=== PATIENT | female | born 1965 | race Caucasian/White ===

== ENCOUNTER → 2017-03-17 | Outpatient (CLI) | payer BC ==
[~2017-03-17] MED LIST: ACET-1757 PO; CITA20TA9 PO; GABA-827 PO; GABA600T2 PO; HYDR-3307 PO; IBUP200T48 PO; LORA-445 PO; METH750T87 PO; NAPR550T30 PO; OXYC-302 PO; PANT40TA3 PO; RALO60TA PO; TOPI100T24 PO; TRAZ50TA18 PO; ZOLP-413 PO
== END | disposition home or self-care (01) ==
LOC: CFH 14:33
PROVIDERS: ATTEND Radiology Radiation Oncology
DX: N63 Unspecified lump in breast (principal); Z92.3 Personal history of irradiation; Z90.12 Acquired absence of left breast and nipple; Z85.3 Personal history of malignant neoplasm of breast
CPT/HCPCS: 76641; G0204

== ENCOUNTER → 2017-03-28 | Outpatient (CLI) | payer BC ==
[~2017-03-28] MED LIST changes: +LIDOCAINE 1%-EPI 1:100K, 20ML ONE; +SODIUM BICARBONATE 4.2%, 5ML ONE
== END | disposition home or self-care (01) ==
LOC: CFH 09:50
PROVIDERS: ATTEND Radiology Radiation Oncology
DX: N63 Unspecified lump in breast (principal); Z85.3 Personal history of malignant neoplasm of breast
CPT/HCPCS: 19083; 88305; J3490

== ENCOUNTER → 2017-06-13 | Outpatient (CLI) | payer BC ==
[~2017-06-13] MED LIST changes: -LIDOCAINE 1%-EPI 1:100K, 20ML ONE; +NAPR-850 PO; -NAPR550T30 PO; -SODIUM BICARBONATE 4.2%, 5ML ONE
== END | disposition home or self-care (01) ==
LOC: ROC 15:12
PROVIDERS: ATTEND Radiology Radiation Oncology
DX: Z08 Encounter for follow-up examination after completed treatment for malignant neoplasm (principal); C50.412 Malignant neoplasm of upper-outer quadrant of left female breast
CPT/HCPCS: 99212; G0463

== ENCOUNTER → 2018-06-24 | Outpatient (CLI) | payer OTHER ==
[~2018-06-24] MED LIST changes: -IBUP200T48 PO; +IBUP200T49 PO; +TRAZ-136 PO; -TRAZ50TA18 PO
== END | disposition home or self-care (01) ==
LOC: CFH 13:21
PROVIDERS: ATTEND Radiology Radiation Oncology
DX: C50.412 Malignant neoplasm of upper-outer quadrant of left female breast (principal)
CPT/HCPCS: 77066

== ENCOUNTER 2018-09-24 15:00 | Emergency (ER) | payer OTHER ==
[~2018-09-24] VITALS: Ht 160 cm; Wt 67.5 kg
[~2018-09-24 15:00] MED LIST changes: -GABA600T2 PO; +GABA600T7 PO; -TRAZ-136 PO; +TRAZ50TA66 PO
[2018-09-24] MEDS ORDERED: ONDANSETRON ODT 4 MG ONE (16:14)
[2018-09-24] MEDS ORDERED: HYDROcodone/APAP 5/325 TABLET ONE (16:15)
--- NOTE | 2018-09-24 16:15 | NUR ---
late entry for 16:15. pt c/o right back and lateral pain since yesterday with mohan/dizziness. pt denies d/v/n at this time. pt c/o dysuria x 1 week as well. pt aox4. resps even and unlabored. pt's at bedside. all monitors in place. call light within reach. awaiting edmd asssessment at this time.
[2018-09-24 16:16] LABS: ALANINE AMINOTRANSFERASE 29 U/L (12-78); ALBUMIN 3.8 g/dL (3.4-5.0); ANION GAP 5 mmol/L (5-15); CALCIUM 9.3 mg/dL (8.5-10.1); CHLORIDE 109 mmol/L (98-107); CREATININE 0.75 mg/dL (0.55-1.02)
--- NOTE | 2018-09-24 16:17 | NUR ---
PT MEDICATED PER EMAR. PT TOLERATED WELL. PT AOX4. RESPS EVEN AND UNLABORED.
[2018-09-24 16:18] LABS: ALKALINE PHOSPHATASE 101 U/L (45-117); BILIRUBIN,TOTAL 0.2 mg/dL (0.2-1.0); TOTAL PROTEIN 7.3 g/dL (6.4-8.2)
[2018-09-24 16:21] LABS: BASOPHILS # (AUTO) 0.03 x10^3/uL (0-0.1); BASOPHILS % (AUTO) 1 % (0-1); EOSINOPHILS % (AUTO) 7 % (1-7); LYMPHOCYTES # (AUTO) 1.81 x10^3/uL (1-3.4); LYMPHOCYTES % (AUTO) 39 % (22-44); MD NO; MEAN CORPUSCULAR HEMOGLOBIN 33.7 pg (27.0-34.8); MEAN PLATELET VOLUME 8.2 fL (7.4-10.4); MONOCYTES # (AUTO) 0.42 x10^3/uL (0.2-0.8); MONOCYTES % (AUTO) 9 % (2-9); NEUTROPHILS % (AUTO) 45 % (42-75); PLATELET COUNT 260 x10^3/uL (130-400); RED BLOOD COUNT 3.65 x10^6/uL (3.82-5.3)
[2018-09-24] MEDS ORDERED: AMOVIG (16:25)
[2018-09-24 16:26] LABS: MICROSCOPIC NOT IND
[2018-09-24] MEDS ORDERED: HYDROcodone/APAP 5/325 TABLET PO ONE (16:30)
[2018-09-24] MEDS ORDERED: ONDANSETRON ODT 4 MG PO ONE (16:30)
[2018-09-24 16:42] LABS: CULTURE INDICATED? NO
--- NOTE | 2018-09-24 17:12 | NUR ---
preceptor note: pt tolerating PO fluids with no n/v. pt reports pain improved s/p meds. all results back, chart up for recheck. awaiting MD and dispo.
--- NOTE | 2018-09-24 17:44 | NUR ---
edmd biagi at bedside to update pt with results and poc.
[2018-09-24] MEDS ORDERED: MORPHINE SULFATE 4 MG/ML, 1ML ONE ×2 (17:49→19:23)
[2018-09-24] MEDS: MORPHINE SULFATE 4 MG/ML, 1ML IVPush PRN ×2 (17:58→19:27)
--- NOTE | 2018-09-24 18:02 | NUR ---
piv placed, pt medicated per emar. tolerated well. pt reports level 8/10 pain to right lower back prior to morphine, now 0/10. pt on all monitors, pt a&o, resps even and unlabored. nsr on desk monitor. pt awaiting ct and dispo.
--- NOTE | 2018-09-24 18:49 | NUR ---
PT BACK TO ROOM FROM CT.
--- NOTE | 2018-09-24 18:54 | NUR ---
pt amb to br with steady gait and back to room.
[2018-09-24] MEDS ORDERED: OMNIPAQUE 350 MG/ML, 100ML BOTTLE ONE (19:23)
--- NOTE | 2018-09-24 19:31 | NUR ---
PT PAIN LEVEL 6-7/10 AT THIS TIME. PT GIVEN 2ND DOSE OF MORPHINE SULFATE AT THIS TIME. PT TOLERATED WELL. PT AOX4. RESPS EVEN AND UNLABORED.
--- NOTE | 2018-09-24 19:51 | NUR ---
PT PAIN LEVEL REDUCES 4-5/10 AT THIS TIME. PT REFUSED ANY PAIN MED AT THIS TIME.
[2018-09-24 19:52] VITALS: BP 108/65
--- NOTE | 2018-09-24 20:03 | NUR ---
PT GIVEN DC INSTRUCTIONS AND SCRIPTS. PT EDUCATED REGARDING DC MEDICATIONS WHICH ARE CEFDINIR AND MIRALAX. PT AOX4. RESPS EVEN AND UNLABORED. PT AMB TO DC WITH STEADY GAIT. NO ACUTE DISTRESS AT DC. PT'S PAIN LEVEL REDUCED AT DC.
== END 2018-09-24 20:05 | disposition home or self-care (01) ==
LOC: ED 18:25
DX: N10 Acute pyelonephritis (principal); K59.00 Constipation, unspecified; M54.9 Dorsalgia, unspecified; Z90.710 Acquired absence of both cervix and uterus; Z85.3 Personal history of malignant neoplasm of breast
CPT/HCPCS: 36415; 74177; 80053; 81003; 83690; 85025; 96374; 96376; 99284; Q0162; Q9967

== ENCOUNTER 2018-09-29 05:55 | Emergency (ER) | payer OTHER ==
[~2018-09-29] VITALS: Ht 165.1 cm; Wt 69.0 kg
[~2018-09-29 05:55] MED LIST changes: +AMOVIG
[2018-09-29] MEDS ORDERED: ONDANSETRON 2MG/ML, 2ML ONE (06:27)
[2018-09-29] MEDS ORDERED: HYDROmorphone 1 MG/ML, 1ML ONE ×2 (06:28→09:15)
[2018-09-29] MEDS ORDERED: ONDANSETRON 2MG/ML, 2ML IVPush ONE (06:30)
[2018-09-29] MEDS ORDERED: SODIUM CHLORIDE FLUSH 10ML SYR IVF ONE (06:30)
[2018-09-29] MEDS: HYDROmorphone 2 MG/ML, 1ML IVPush PRN ×3 (06:35→09:24)
[2018-09-29 06:38] LABS: BASOPHILS # (AUTO) 0.02 x10^3/uL (0-0.1); BASOPHILS % (AUTO) 1 % (0-1); EOSINOPHILS # (AUTO) 0.43 x10^3/uL (0-0.4); EOSINOPHILS % (AUTO) 12 % (1-7); LYMPHOCYTES # (AUTO) 1.18 x10^3/uL (1-3.4); LYMPHOCYTES % (AUTO) 32 % (22-44); MD NO; MEAN CORPUSCULAR HEMOGLOBIN 33.5 pg (27.0-34.8); MEAN CORPUSCULAR HGB CONC 33.8 g/dL (32.4-35.8); MEAN CORPUSCULAR VOLUME 98.9 fL (80-100); MEAN PLATELET VOLUME 7.8 fL (7.4-10.4); MONOCYTES # (AUTO) 0.32 x10^3/uL (0.2-0.8); MONOCYTES % (AUTO) 9 % (2-9); NEUTROPHILS # (AUTO) 1.78 x10^3/uL (1.8-6.8); NEUTROPHILS % (AUTO) 48 % (42-75); PLATELET COUNT 253 x10^3/uL (130-400); RED BLOOD COUNT 3.77 x10^6/uL (3.82-5.3); RED CELL DISTRIBUTION WIDTH 12.9 % (9.6-15.2)
[2018-09-29 06:38] LABS: MICROSCOPIC NOT IND
--- NOTE | 2018-09-29 06:38 | NUR ---
SUMMARY NOTE: PT. TO ED WITH C/O RIGHT FLANK PAIN, DIZZINESS, AND FREQUENCY WITH URINATION SINCE 09/24/18; SEEN HERE FOR SAME THAT DAY. HAS BEEN TAKING MEDS ORDERED BUT GETTING WORSE. URINE HAS BEEN SENT TO LAB. IV HAS BEEN ESTABLISHED; LABS DRAWN AND SENT TO LAB. PT. MEDICATED PER OCT FOR 8/10 RIGHT FLANK PAIN; PAIN DOWN TO 5/10 AT TIME OF NOTE. TECH AT BS FOR EKG NOW. IMMEDIATELY AFTER FIELD MARKETING SPECIALIST O2 DROPPED TO 80'S; 2L O2 PLACED VIA NC WITH IMMEDIATE INCREASE TO 99%. IS AT BS FOR SUPPORT. CALL LIGHT IN REACH. CONTINUOUS PULSE OX, B/P, AND HEART MONITORS IN PLACE.
[2018-09-29 06:43] LABS: ALANINE AMINOTRANSFERASE 74 U/L (12-78); ALBUMIN 3.8 g/dL (3.4-5.0); ANION GAP 5 mmol/L (5-15); CALCIUM 9.3 mg/dL (8.5-10.1); CHLORIDE 108 mmol/L (98-107); CREATININE 0.74 mg/dL (0.55-1.02)
[2018-09-29 06:44] LABS: CULTURE INDICATED? NO
[2018-09-29 06:46] LABS: ALKALINE PHOSPHATASE 122 U/L (45-117); BILIRUBIN,TOTAL 0.5 mg/dL (0.2-1.0); TOTAL PROTEIN 7.4 g/dL (6.4-8.2)
--- NOTE | 2018-09-29 06:50 | NUR ---
DISCUSSED B/P WITH DR. QUIROS; NEW ORDERS RECEIVED. IVF INFUSIGN PER ORDER.
[2018-09-29] MEDS ORDERED: SODIUM CHLORIDE 0.9% 1,000ML IVBOLUS ONE (07:00)
--- NOTE | 2018-09-29 07:15 | NUR ---
Recieved bedside report from MICKIE Camargo. All questions answered.
--- NOTE | 2018-09-29 07:19 | NUR ---
Pt transported on gurney to imaging.
--- NOTE | 2018-09-29 07:55 | NUR ---
Pt away at imaging on [facility] at this time.
--- NOTE | 2018-09-29 08:45 | NUR ---
Pt back to room from imaging. Pt connected to all monitors. PIV fluids finished infusing per EMAR. JACKSON. Pt states, "I am still having pain". All safety measures in place. Pt's spouse at bedside. Pt on 1.5 L of oxygen via nasal cannula and is at 100%.
[2018-09-29] MEDS ORDERED: MALOXICAM PO (08:52)
[2018-09-29] MEDS ORDERED: TIZA4CAP PO (08:52)
--- NOTE | 2018-09-29 09:24 | NUR ---
Provided 0.5 mg of Hydromorphone hydrochloride PIV dose 2 of 2, per EDMD verbal order. Verbal order read back and confirmed.
[2018-09-29 09:43] VITALS: BP 107/50
--- NOTE | 2018-09-29 09:46 | NUR ---
Patient/Caregiver given discharge instructions and they have confirmed that they understand the instructions. Patient ambulatory with steady gait.
== END 2018-09-29 06:47 | disposition home or self-care (01) ==
LOC: ED 06:36
DX: K80.20 Calculus of gallbladder without cholecystitis without obstruction (principal); R42 Dizziness and giddiness; Z90.710 Acquired absence of both cervix and uterus; Z85.3 Personal history of malignant neoplasm of breast
CPT/HCPCS: 36415; 74022; 76700; 80053; 81003; 83690; 85025; 93005; 96361; 96374; 96375; 96376; 99284; J1170; J2405; J7030

== ENCOUNTER 2018-10-12 13:27 | Observation (INO) | payer OTHER ==
[~2018-10-12] VITALS: Ht 165.1 cm; Wt 55.7 kg
[~2018-10-12 13:27] MED LIST changes: +MALOXICAM PO; +SUCCINYLCHOLINE 20 MG/ML, 10ML ONE; +TIZA4CAP PO
[2018-10-12 14:15] LABS: BASOPHILS # (AUTO) 0.02 x10^3/uL (0-0.1); BASOPHILS % (AUTO) 0 % (0-1); EOSINOPHILS # (AUTO) 0.43 x10^3/uL (0-0.4); EOSINOPHILS % (AUTO) 8 % (1-7); LYMPHOCYTES # (AUTO) 1.98 x10^3/uL (1-3.4); LYMPHOCYTES % (AUTO) 39 % (22-44); MD NO; MEAN CORPUSCULAR HEMOGLOBIN 33.5 pg (27.0-34.8); MEAN CORPUSCULAR HGB CONC 34.2 g/dL (32.4-35.8); MEAN CORPUSCULAR VOLUME 97.9 fL (80-100); MEAN PLATELET VOLUME 8.4 fL (7.4-10.4); MONOCYTES # (AUTO) 0.39 x10^3/uL (0.2-0.8); MONOCYTES % (AUTO) 8 % (2-9); NEUTROPHILS # (AUTO) 2.31 x10^3/uL (1.8-6.8); NEUTROPHILS % (AUTO) 45 % (42-75); PLATELET COUNT 276 x10^3/uL (130-400); RED BLOOD COUNT 3.87 x10^6/uL (3.82-5.3); RED CELL DISTRIBUTION WIDTH 12.9 % (9.6-15.2)
--- NOTE | 2018-10-12 14:23 | NUR ---
PT AMBUALTORY TO & FROM BR W/OUT INCIDENT; VOIDED SPECIMEN PROVIDED.
[2018-10-12 14:24] LABS: ALBUMIN 4.4 g/dL (3.4-5.0); ANION GAP 6 mmol/L (5-15); CALCIUM 9.7 mg/dL (8.5-10.1); CHLORIDE 108 mmol/L (98-107)
--- NOTE | 2018-10-12 14:27 | NUR ---
PT A&OX4, RESP EVEN & UNLABORED, SPEECH CLEAR, SKIN WNL. C/O RUQ PAIN - STARTED 09/24/18 - STATES "I HAVE GALLSTONES". SENT TO ED PER PCP. NO PAIN MEDS TAKEN RECENTLY. LAST ORAL INTAKE: COFFEE - SCOTTY LUCILLECHIATO - 0900 TODAY. LAST BM: TODAY.
[2018-10-12 14:28] LABS: ALANINE AMINOTRANSFERASE 36 U/L (12-78); ALKALINE PHOSPHATASE 122 U/L (45-117); BILIRUBIN,TOTAL 0.3 mg/dL (0.2-1.0); CREATININE 0.68 mg/dL (0.55-1.02); TOTAL PROTEIN 7.7 g/dL (6.4-8.2)
[2018-10-12] MEDS ORDERED: ONDANSETRON 2MG/ML, 2ML IVPush ONE (14:30)
[2018-10-12] MEDS ORDERED: MORPHINE SULFATE 4 MG/ML, 1ML IVPush PRN (14:30)
[2018-10-12] MEDS ORDERED: SODIUM CHLORIDE FLUSH 10ML SYR IVF ONE (14:30)
--- NOTE | 2018-10-12 14:36 | NUR ---
U/S AT BS FOR EXAM
[2018-10-12] MEDS ORDERED: ONDANSETRON 2MG/ML, 2ML ONE ×2 (15:01→15:32)
[2018-10-12] MEDS ORDERED: MORPHINE SULFATE 4 MG/ML, 1ML ONE (15:02)
[2018-10-12] MEDS ORDERED: FENTANYL PF 100 MCG/2ML ONE ×3 (15:29→17:23)
[2018-10-12] MEDS ORDERED: MIDAZOLAM 1 MG/ML, 2ML ONE (15:29)
[2018-10-12] MEDS ORDERED: NEOSTIGMINE 1 MG/ML, 10ML ONE (15:32)
[2018-10-12] MEDS ORDERED: GLYCOPYRROLATE 0.2MG/1ML, 5ML ONE (15:32)
[2018-10-12] MEDS ORDERED: CEFOTETAN PMX 2GM/50ML 50 ML ONE (15:32)
[2018-10-12] MEDS ORDERED: ROCURONIUM 10MG/ML,5ML ONE (15:32)
[2018-10-12] MEDS ORDERED: PROPOFOL 10 MG/ML, 20ML ONE (15:32)
--- NOTE | 2018-10-12 15:44 | NUR ---
ZOFRAN AND MORPHINE GIVEN PER EMAR. SIDE RAILS UP X2, CALL LIGHT W/IN REACH. PT AWARE OF PENDING ADMISSION.
--- NOTE | 2018-10-12 15:57 | NUR ---
PT REPORT TO MARGO OR LYSSA. PT CURRENTLY SCHEDULED FOR 1645 SURGERY.
--- NOTE | 2018-10-12 16:10 | NUR ---
PT OT OR PER LUCIANA, ACCOMPANIED BY SPOUSE; PERSONAL BELONGINGS GIVEN TO SPOUSE.
[2018-10-12] MEDS ORDERED: BUPIVACAINE/PF-EPI 0.5% 1:200K ONE (16:19)
[2018-10-12] MEDS ORDERED: SUGAMMADEX 200 MG/2 ML IVPush ONE (16:21)
[2018-10-12] MEDS ORDERED: SODIUM CHLORIDE FLUSH 10ML SYR IVF PRN (16:30)
[2018-10-12] MEDS ORDERED: HYDROmorphone 2 MG/ML, 1ML IVPush PRN ×2 (17:00→17:30)
[2018-10-12] MEDS ORDERED: MEPERIDINE/PF 25MG/0.5ML IVPush PRN (17:00)
[2018-10-12] MEDS ORDERED: METOCLOPRAMIDE 5 MG/ML, 2ML IV PRN (17:00)
[2018-10-12] MEDS ORDERED: OXYcodone 5 MG/5 ML ORAL.SOL UDC PO PRN ×2 (17:00→17:30)
[2018-10-12] MEDS ORDERED: LABETALOL 5MG/ML, 20ML IV PRN (17:00)
[2018-10-12] MEDS ORDERED: LORazepam 2 MG/ML, 1ML IVPush PRN (17:00)
[2018-10-12] MEDS ORDERED: hydrALAzine 20 MG/ML, 1ML IV PRN (17:00)
[2018-10-12] MEDS: FENTANYL PF 100 MCG/2ML IV PRN ×2 (17:19→17:31)
[2018-10-12] MEDS ORDERED: OXYcodone 5 MG/5 ML ORAL.SOL UDC ONE (17:23)
[2018-10-12] MEDS ORDERED: MEPERIDINE/PF 25MG/ML,1ML ONE (17:29)
[2018-10-12] MEDS ORDERED: PROMETHAZINE 25 MG/ML, 1ML ONE (17:29)
[2018-10-12] MEDS ORDERED: PROMETHAZINE 25 MG/ML, 1ML IV PRN (18:00)
[2018-10-12 18:44] VITALS: BP 121/83
[2018-10-12 23:46] VITALS: BP 90/52
[2018-10-12] MEDS: OXYcodone 5 MG/5 ML ORAL.SOL UDC PO PRN (23:57)
[2018-10-13] VITALS: BP 99/52
[2018-10-13] MEDS: OXYcodone 5 MG/5 ML ORAL.SOL UDC PO PRN (04:13)
[2018-10-13 04:47] VITALS: BP 97/66
== END 2018-10-13 05:50 | disposition home or self-care (01) ==
LOC: ED 14:21 → UNDOADMOB 16:11 → INTOOBSV 16:11 → EDIP 16:11 → 4NOR 18:33 → EDIP 18:33 → 4NOR 22:36 → EDIP 22:36 → UNDODISOB 10-13 05:50
PROVIDERS: ADMIT Surgery; ATTEND Surgery
DX: K80.12 Calculus of gallbladder with acute and chronic cholecystitis without obstruction (principal); Z85.3 Personal history of malignant neoplasm of breast; Z90.710 Acquired absence of both cervix and uterus; Z98.1 Arthrodesis status
CPT/HCPCS: 36415; 47562; 76700; 80053; 83690; 85025; 88304; 93005; 96374; 96375; 99284; G0378; J0330; J1170; J2175; J2250; J2405; J2550; J2704; J2710; J3010; J3490; 99285

== ENCOUNTER 2018-10-15 13:40 | Inpatient (IN) | payer OTHER ==
[~2018-10-15] VITALS: Ht 165.1 cm; Wt 73.2 kg
[~2018-10-15 13:40] MED LIST changes: -SUCCINYLCHOLINE 20 MG/ML, 10ML ONE
[2018-10-15 15:05] LABS: BASOPHILS # (AUTO) 0.01 x10^3/uL (0-0.1); BASOPHILS % (AUTO) 1 % (0-1); EOSINOPHILS # (AUTO) 0.12 x10^3/uL (0-0.4); EOSINOPHILS % (AUTO) 5 % (1-7); LYMPHOCYTES # (AUTO) 0.52 x10^3/uL (1-3.4); LYMPHOCYTES % (AUTO) 22 % (22-44); MD NO; MEAN CORPUSCULAR HEMOGLOBIN 33.1 pg (27.0-34.8); MEAN CORPUSCULAR HGB CONC 33.7 g/dL (32.4-35.8); MEAN CORPUSCULAR VOLUME 98.5 fL (80-100); MEAN PLATELET VOLUME 8.3 fL (7.4-10.4); MONOCYTES # (AUTO) 0.18 x10^3/uL (0.2-0.8); MONOCYTES % (AUTO) 8 % (2-9); NEUTROPHILS % (AUTO) 64 % (42-75); PLATELET COUNT 209 x10^3/uL (130-400); RED BLOOD COUNT 3.49 x10^6/uL (3.82-5.3); RED CELL DISTRIBUTION WIDTH 12.9 % (9.6-15.2)
[2018-10-15 15:10] LABS: ALBUMIN 3.9 g/dL (3.4-5.0); ANION GAP 5 mmol/L (5-15); CALCIUM 8.7 mg/dL (8.5-10.1); CHLORIDE 105 mmol/L (98-107); CREATININE 0.66 mg/dL (0.55-1.02)
[2018-10-15 15:19] LABS: ALANINE AMINOTRANSFERASE 1469 U/L (12-78); ALKALINE PHOSPHATASE 313 U/L (45-117); BILIRUBIN,TOTAL 0.9 mg/dL (0.2-1.0); TOTAL PROTEIN 7.4 g/dL (6.4-8.2)
--- NOTE | 2018-10-15 16:19 | NUR ---
ASSUMED CARE OF PT FROM [facility] AT THIS TIME. PT C/O FEVERS SINCE SURGERY 2 DAYS AGO FOR AMANDA. PT REPORT TEMP UP TO 103 AT HOME AND TOOK TYLENOL 4 HOURS AGO. CHART UP FOR .
[2018-10-15] MEDS ORDERED: OXYC-302 PO (16:41)
[2018-10-15] MEDS ORDERED: ACET-1600 PO (16:41)
[2018-10-15 17:04] LABS: MICROSCOPIC NOT IND
[2018-10-15 17:07] LABS: CULTURE INDICATED? NO
[2018-10-15] MEDS ORDERED: OXYcodone/APAP 5/325MG TABLET ONE (17:26)
[2018-10-15] MEDS ORDERED: OXYcodone/APAP 5/325MG TABLET PO ONE (17:30)
--- NOTE | 2018-10-15 17:30 | NUR ---
REPORT TO KHAI CORADO FOR LUNCH BREAK.
--- NOTE | 2018-10-15 18:38 | NUR ---
PT REPORTS PAIN IS BETTER AND VSS. WAITING FOR US RESULTS.
--- NOTE | 2018-10-15 19:02 | NUR ---
PAGING SURGEON PER DR. ORTIZ. PT AWARE.
[2018-10-15 20:26] VITALS: BP 130/78
[2018-10-15] MEDS ORDERED: ENALAPRILAT 1.25 MG/ML, 2ML IVPush PRN (21:30)
[2018-10-15] MEDS ORDERED: LIDODERM 5% PATCH TD PRN (21:30)
[2018-10-15] MEDS: TIZANIDINE 4MG TABLET PO SCH (21:42)
[2018-10-15] MEDS: GABAPENTIN 400 MG CAPSULE PO SCH (21:42)
[2018-10-15] MEDS: OXYcodone/APAP 5/325MG TABLET PO PRN ×2 (21:42→22:32)
[2018-10-15] MEDS: SODIUM CHLORIDE 0.9% 1,000 ML IV SCH (22:29)
[2018-10-15] MEDS: TEMAZEPAM 15 MG CAPSULE PO PRN (22:53)
[2018-10-15] MEDS: SIMETHICONE 125 MG CHEW TAB PO PRN (22:54)
[2018-10-16 00:01] VITALS: BP 133/61
[2018-10-16] MEDS: TIZANIDINE 4MG TABLET PO SCH ×4 (03:44→21:30)
[2018-10-16] MEDS: OXYcodone/APAP 5/325MG TABLET PO PRN ×5 (03:44→21:30)
[2018-10-16 04:55] LABS: MEAN CORPUSCULAR HEMOGLOBIN 34.1 pg (27.0-34.8); MEAN CORPUSCULAR HGB CONC 34.4 g/dL (32.4-35.8); MEAN CORPUSCULAR VOLUME 98.9 fL (80-100); MEAN PLATELET VOLUME 8.3 fL (7.4-10.4); PLATELET COUNT 180 x10^3/uL (130-400); RED BLOOD COUNT 3.13 x10^6/uL (3.82-5.3); RED CELL DISTRIBUTION WIDTH 13.1 % (9.6-15.2)
[2018-10-16 05:06] LABS: ALBUMIN 3.3 g/dL (3.4-5.0); ANION GAP 4 mmol/L (5-15); CALCIUM 8.4 mg/dL (8.5-10.1); CHLORIDE 110 mmol/L (98-107); CREATININE 0.62 mg/dL (0.55-1.02)
[2018-10-16 05:13] LABS: ALANINE AMINOTRANSFERASE 992 U/L (12-78); ALKALINE PHOSPHATASE 311 U/L (45-117); BILIRUBIN,TOTAL 0.7 mg/dL (0.2-1.0); TOTAL PROTEIN 6.4 g/dL (6.4-8.2)
[2018-10-16 05:32] LABS: BASOPHILS # (AUTO) 0.01 x10^3/uL (0-0.1); BASOPHILS % (AUTO) 1 % (0-1); EOSINOPHILS # (AUTO) 0.31 x10^3/uL (0-0.4); EOSINOPHILS % (AUTO) 13 % (1-7); LYMPHOCYTES % (AUTO) 42 % (22-44); MD SCAN; MONOCYTES # (AUTO) 0.24 x10^3/uL (0.2-0.8); MONOCYTES % (AUTO) 10 % (2-9); NEUTROPHILS # (AUTO) 0.79 x10^3/uL (1.8-6.8); NEUTROPHILS % (AUTO) 34 % (42-75)
[2018-10-16 08:45] VITALS: BP 102/69
[2018-10-16] MEDS: GABAPENTIN 400 MG CAPSULE PO SCH ×2 (09:13→21:30)
[2018-10-16] MEDS ORDERED: BISACODYL 10 MG SUPP PR PRN (11:30)
[2018-10-16] MEDS: SENNA/DOCUSATE TABLET PO SCH (13:32)
[2018-10-16] MEDS: SODIUM CHLORIDE 0.9% 1,000 ML IV SCH (13:35)
[2018-10-16 13:43] VITALS: BP 93/60
[2018-10-16 19:45] VITALS: BP 100/67
[2018-10-16] MEDS: TEMAZEPAM 15 MG CAPSULE PO PRN (21:30)
[2018-10-17 01:27] VITALS: BP 104/73
[2018-10-17] MEDS: PROMETHAZINE 25 MG/ML, 1ML IM PRN (02:44)
[2018-10-17] MEDS: OXYcodone/APAP 5/325MG TABLET PO PRN ×5 (02:44→20:30)
[2018-10-17] MEDS: TIZANIDINE 4MG TABLET PO SCH ×4 (04:15→21:34)
[2018-10-17 06:06] LABS: CHLORIDE 111 mmol/L (98-107)
[2018-10-17 06:13] LABS: ALANINE AMINOTRANSFERASE 571 U/L (12-78); ALBUMIN 3.3 g/dL (3.4-5.0); ALKALINE PHOSPHATASE 299 U/L (45-117); ANION GAP 4 mmol/L (5-15); BILIRUBIN,TOTAL 0.4 mg/dL (0.2-1.0); CALCIUM 8.3 mg/dL (8.5-10.1); CREATININE 0.61 mg/dL (0.55-1.02); TOTAL PROTEIN 6.3 g/dL (6.4-8.2)
[2018-10-17] MEDS: GABAPENTIN 400 MG CAPSULE PO SCH ×2 (09:26→20:30)
[2018-10-17] MEDS: SODIUM CHLORIDE 0.9% 1,000 ML IV SCH ×2 (09:27→21:35)
[2018-10-17] MEDS: SENNA/DOCUSATE TABLET PO SCH (09:27)
[2018-10-17 09:40] VITALS: BP 115/63
[2018-10-17 14:22] VITALS: BP 97/53
[2018-10-17 20:59] VITALS: BP 92/58
[2018-10-17] MEDS: TEMAZEPAM 15 MG CAPSULE PO PRN (21:34)
[2018-10-18 02:51] VITALS: BP 115/74
[2018-10-18] MEDS: TIZANIDINE 4MG TABLET PO SCH ×4 (02:55→21:00)
[2018-10-18] MEDS: OXYcodone/APAP 5/325MG TABLET PO PRN ×5 (02:55→22:44)
[2018-10-18 05:49] LABS: CHLORIDE 110 mmol/L (98-107)
[2018-10-18 05:56] LABS: ALANINE AMINOTRANSFERASE 412 U/L (12-78); ALBUMIN 3.2 g/dL (3.4-5.0); ALKALINE PHOSPHATASE 301 U/L (45-117); ANION GAP 3 mmol/L (5-15); BILIRUBIN,TOTAL 0.3 mg/dL (0.2-1.0); CALCIUM 8.4 mg/dL (8.5-10.1); CREATININE 0.58 mg/dL (0.55-1.02); TOTAL PROTEIN 6.3 g/dL (6.4-8.2)
[2018-10-18 07:15] VITALS: BP 118/70
[2018-10-18] MEDS ORDERED: FENTANYL PF 100 MCG/2ML ONE ×2 (07:47→09:33)
[2018-10-18] MEDS ORDERED: LABETALOL 5MG/ML, 20ML IV PRN (08:00)
[2018-10-18] MEDS ORDERED: METOPROLOL 1 MG/ML, 5ML IV PRN (08:00)
[2018-10-18] MEDS ORDERED: hydrALAzine 20 MG/ML, 1ML IV PRN (08:00)
[2018-10-18] MEDS ORDERED: PIPERACILLIN/TAZO/PMX 3.375GM 50 ML ONE (08:02)
[2018-10-18] MEDS ORDERED: ONDANSETRON 2MG/ML, 2ML ONE (08:10)
[2018-10-18] MEDS ORDERED: ROCURONIUM 10MG/ML,5ML ONE (08:10)
[2018-10-18] MEDS ORDERED: SUCCINYLCHOLINE 20 MG/ML, 10ML ONE (08:10)
[2018-10-18] MEDS ORDERED: DEXAMETHASONE 4 MG/ML, 1ML ONE (08:10)
[2018-10-18] MEDS ORDERED: PROPOFOL 10 MG/ML, 20ML ONE (08:10)
[2018-10-18] MEDS: SENNA/DOCUSATE TABLET PO SCH (09:00)
[2018-10-18] MEDS ORDERED: OXYcodone 5 MG/5 ML ORAL.SOL UDC ONE (09:33)
[2018-10-18] MEDS ORDERED: OMNIPAQUE 350 MG/ML, 50 ML BOTTLE ONE (09:37)
[2018-10-18] MEDS: FENTANYL PF 100 MCG/2ML IV PRN ×2 (09:40→10:03)
[2018-10-18] MEDS ORDERED: HYDROmorphone 2 MG/ML, 1ML ONE (09:43)
[2018-10-18] MEDS ORDERED: INDOMETHACIN 50 MG SUPP.RECT ONE (09:44)
[2018-10-18] MEDS: HYDROmorphone 2 MG/ML, 1ML IVPush PRN ×4 (09:46→13:34)
[2018-10-18] MEDS ORDERED: OXYcodone 5 MG/5 ML ORAL.SOL UDC PO PRN (10:00)
[2018-10-18] MEDS ORDERED: INDOMETHACIN 50 MG SUPP.RECT PR ONE ×2 (10:00→11:30)
[2018-10-18] MEDS: GABAPENTIN 400 MG CAPSULE PO SCH ×2 (10:59→21:00)
[2018-10-18] MEDS ORDERED: LACTATED RINGERS 1,000 ML IV ONE (11:30)
[2018-10-18 13:38] VITALS: BP 136/83
[2018-10-18] MEDS: SODIUM CHLORIDE 0.9% 1,000 ML IV SCH (13:42)
[2018-10-18] MEDS: SIMETHICONE 125 MG CHEW TAB PO PRN (16:15)
[2018-10-18] MEDS: PROMETHAZINE 25 MG/ML, 1ML IM PRN (16:15)
[2018-10-18 20:57] VITALS: BP 109/68
[2018-10-19 00:50] VITALS: BP 99/45
[2018-10-19 01:00] VITALS: BP 111/56
[2018-10-19] MEDS: TEMAZEPAM 15 MG CAPSULE PO PRN ×2 (01:06→23:26)
[2018-10-19] MEDS: TIZANIDINE 4MG TABLET PO SCH ×4 (03:11→21:29)
[2018-10-19] MEDS: OXYcodone/APAP 5/325MG TABLET PO PRN ×5 (03:11→21:29)
[2018-10-19] MEDS: SODIUM CHLORIDE 0.9% 1,000 ML IV SCH ×2 (03:11→16:47)
[2018-10-19 06:54] VITALS: BP 106/66
[2018-10-19] MEDS: GABAPENTIN 400 MG CAPSULE PO SCH ×2 (08:16→21:29)
[2018-10-19] MEDS: SENNA/DOCUSATE TABLET PO SCH (08:16)
[2018-10-19 11:57] LABS: BASOPHILS # (AUTO) 0.02 x10^3/uL (0-0.1); BASOPHILS % (AUTO) 0 % (0-1); EOSINOPHILS # (AUTO) 0.14 x10^3/uL (0-0.4); EOSINOPHILS % (AUTO) 3 % (1-7); LYMPHOCYTES # (AUTO) 1.68 x10^3/uL (1-3.4); LYMPHOCYTES % (AUTO) 36 % (22-44); MD NO; MEAN CORPUSCULAR HEMOGLOBIN 33.8 pg (27.0-34.8); MEAN CORPUSCULAR HGB CONC 34.3 g/dL (32.4-35.8); MEAN CORPUSCULAR VOLUME 98.6 fL (80-100); MEAN PLATELET VOLUME 7.9 fL (7.4-10.4); MONOCYTES # (AUTO) 0.43 x10^3/uL (0.2-0.8); MONOCYTES % (AUTO) 9 % (2-9); NEUTROPHILS # (AUTO) 2.44 x10^3/uL (1.8-6.8); NEUTROPHILS % (AUTO) 52 % (42-75); PLATELET COUNT 232 x10^3/uL (130-400); RED CELL DISTRIBUTION WIDTH 12.6 % (9.6-15.2)
[2018-10-19 11:59] LABS: ALANINE AMINOTRANSFERASE 313 U/L (12-78); ALBUMIN 3.3 g/dL (3.4-5.0); ANION GAP 6 mmol/L (5-15); CALCIUM 8.5 mg/dL (8.5-10.1); CHLORIDE 110 mmol/L (98-107)
[2018-10-19 12:02] LABS: ALKALINE PHOSPHATASE 282 U/L (45-117); BILIRUBIN,TOTAL 0.3 mg/dL (0.2-1.0); CREATININE 0.67 mg/dL (0.55-1.02); TOTAL PROTEIN 6.5 g/dL (6.4-8.2)
[2018-10-19 15:20] VITALS: BP 101/65
[2018-10-19 20:07] VITALS: BP 102/51
[2018-10-20] MEDS: OXYcodone/APAP 5/325MG TABLET PO PRN ×3 (01:31→10:07)
[2018-10-20 01:46] VITALS: BP 110/71
[2018-10-20] MEDS: TIZANIDINE 4MG TABLET PO SCH ×2 (03:50→10:07)
[2018-10-20] MEDS: SODIUM CHLORIDE 0.9% 1,000 ML IV SCH (06:10)
[2018-10-20 07:35] VITALS: BP 116/71
[2018-10-20 07:45] LABS: ALANINE AMINOTRANSFERASE 251 U/L (12-78); ALBUMIN 3.3 g/dL (3.4-5.0); ANION GAP 4 mmol/L (5-15); CALCIUM 8.7 mg/dL (8.5-10.1); CHLORIDE 113 mmol/L (98-107); CREATININE 0.56 mg/dL (0.55-1.02)
[2018-10-20 07:47] LABS: ALKALINE PHOSPHATASE 245 U/L (45-117); BILIRUBIN,TOTAL 0.3 mg/dL (0.2-1.0); TOTAL PROTEIN 6.4 g/dL (6.4-8.2)
[2018-10-20] MEDS: SENNA/DOCUSATE TABLET PO SCH (08:34)
[2018-10-20] MEDS: GABAPENTIN 400 MG CAPSULE PO SCH (08:34)
[2018-10-20] MEDS ORDERED: Simethicone PO (09:38)
[2018-10-20] MEDS ORDERED: BISA10SU65 PR (09:38)
== END 2018-10-20 12:54 | disposition home or self-care (01) | DRG 444 ==
LOC: ED 16:48 → EDIP 19:01 → 4NOR 19:51 → DCLOUNGE 10-20 12:25
PROVIDERS: ADMIT Internal Medicine; ATTEND Internal Medicine
PROC: 0DJ08ZZ Inspection of Upper Intestinal Tract, Via Natural or Artificial Opening Endoscopic (ICD-10-PCS; 2018-10-18)
PROC: 0F798DZ Dilation of Common Bile Duct with Intraluminal Device, Via Natural or Artificial Opening Endoscopic (ICD-10-PCS; 2018-10-18)
PROC: BF181ZZ Fluoroscopy of Pancreatic Ducts using Low Osmolar Contrast (ICD-10-PCS; 2018-10-18)
PROC: 0F7D8DZ Dilation of Pancreatic Duct with Intraluminal Device, Via Natural or Artificial Opening Endoscopic (ICD-10-PCS; 2018-10-18)
PROC: 0FD98ZX Extraction of Common Bile Duct, Via Natural or Artificial Opening Endoscopic, Diagnostic (ICD-10-PCS; principal; 2018-10-18 08:00)
DX: K83.09 Other cholangitis (principal); R65.11 Systemic inflammatory response syndrome (SIRS) of non-infectious origin with acute organ dysfunction; B17.9 Acute viral hepatitis, unspecified; F33.9 Major depressive disorder, recurrent, unspecified; R10.9 Unspecified abdominal pain; R74.8 Abnormal levels of other serum enzymes; D64.9 Anemia, unspecified; D72.819 Decreased white blood cell count, unspecified; G62.9 Polyneuropathy, unspecified; G89.29 Other chronic pain; M54.9 Dorsalgia, unspecified; Z80.0 Family history of malignant neoplasm of digestive organs; Z80.7 Family history of other malignant neoplasms of lymphoid, hematopoietic and related tissues; Z85.3 Personal history of malignant neoplasm of breast; Z87.891 Personal history of nicotine dependence; Z90.710 Acquired absence of both cervix and uterus; Z98.1 Arthrodesis status; F41.9 Anxiety disorder, unspecified
CPT/HCPCS: 36415; 71045; 74181; 74330; 76700; 80053; 81003; 83605; 84145; 85025; 86301; 87040; 88104; 88112; 99285; G0378; J1100; J1170; J2405; J2543; J2550; J2704; J3010; Q9967; C1769; C1894; C2625; J0330; J7030; J7120

== ENCOUNTER 2018-11-01 19:36 | Emergency (ER) | payer OTHER ==
[~2018-11-01] VITALS: Ht 165.1 cm; Wt 66.2 kg
[~2018-11-01 19:36] MED LIST changes: +ACET-1600 PO; +BISA10SU65 PR; +Simethicone PO
[2018-11-01 19:42] VITALS: BP 119/62
--- NOTE | 2018-11-01 20:00 | NUR ---
PT ARRIVES TO ED S/P OP PROCEDURE. PT REPORTS ABD DISCOMFORT, DENIES N/V/D AT THIS TIME. PT IS TENDER TO RIGHT FLANK PAIN AND GAURDING. PT REPORTS THAT HER ABD FEELS VERY FIRM FOR HER. PT DENIES ANY TRUAMA AT THIS TIME. PT CONNECTED TO MONITORS AND CALL LIGHT IN REACH. PT HAS NO ABD BRUISING OR OBIVIOSU DEFORMITY.
[2018-11-01 20:10] LABS: MICROSCOPIC NOT IND
[2018-11-01 20:12] LABS: CULTURE INDICATED? NO
[2018-11-01] MEDS ORDERED: MORPHINE SULFATE 4 MG/ML, 1ML ONE (20:16)
[2018-11-01] MEDS ORDERED: ONDANSETRON 2MG/ML, 2ML ONE (20:16)
--- NOTE | 2018-11-01 20:20 | NUR ---
PT MEDICATED PER EMAR.
[2018-11-01] MEDS ORDERED: MORPHINE SULFATE 4 MG/ML, 1ML IVPush PRN (20:30)
[2018-11-01] MEDS ORDERED: ONDANSETRON 2MG/ML, 2ML IVPush ONE (20:30)
[2018-11-01] MEDS ORDERED: SODIUM CHLORIDE FLUSH 10ML SYR IVF ONE (20:30)
[2018-11-01 20:32] LABS: ALANINE AMINOTRANSFERASE 44 U/L (12-78); ALBUMIN 3.7 g/dL (3.4-5.0); ANION GAP 5 mmol/L (5-15); BASOPHILS # (AUTO) 0.08 x10^3/uL (0-0.1); BASOPHILS % (AUTO) 1 % (0-1); CALCIUM 8.7 mg/dL (8.5-10.1); CHLORIDE 110 mmol/L (98-107); EOSINOPHILS # (AUTO) 0.36 x10^3/uL (0-0.4); EOSINOPHILS % (AUTO) 4 % (1-7); LYMPHOCYTES # (AUTO) 1.97 x10^3/uL (1-3.4); LYMPHOCYTES % (AUTO) 22 % (22-44); MD NO; MEAN CORPUSCULAR HEMOGLOBIN 33.4 pg (27.0-34.8); MEAN CORPUSCULAR HGB CONC 34.1 g/dL (32.4-35.8); MEAN CORPUSCULAR VOLUME 97.9 fL (80-100); MONOCYTES # (AUTO) 0.81 x10^3/uL (0.2-0.8); MONOCYTES % (AUTO) 9 % (2-9); NEUTROPHILS % (AUTO) 64 % (42-75); PLATELET COUNT 328 x10^3/uL (130-400); RED BLOOD COUNT 3.61 x10^6/uL (3.82-5.3); RED CELL DISTRIBUTION WIDTH 12.5 % (9.6-15.2)
[2018-11-01 20:35] LABS: ALKALINE PHOSPHATASE 198 U/L (45-117); BILIRUBIN,TOTAL 0.3 mg/dL (0.2-1.0); CREATININE 0.75 mg/dL (0.55-1.02); TOTAL PROTEIN 7.5 g/dL (6.4-8.2)
--- NOTE | 2018-11-01 22:05 | NUR ---
Patient/Caregiver given discharge instructions and they have confirmed that they understand the instructions. Patient ambulatory with steady gait.
[2018-11-01] MEDS ORDERED: OMNIPAQUE 350 MG/ML, 100ML BOTTLE ONE (22:22)
== END 2018-11-01 22:07 | disposition home or self-care (01) ==
LOC: ED 21:56
DX: R10.11 Right upper quadrant pain (principal); K91.89 Other postprocedural complications and disorders of digestive system; Z90.49 Acquired absence of other specified parts of digestive tract; Z90.710 Acquired absence of both cervix and uterus; I10 Essential (primary) hypertension
CPT/HCPCS: 36415; 74177; 80053; 81003; 83690; 85025; 96374; 96375; 99284; J2405; Q9967

== ENCOUNTER 2019-04-10 10:38 | Emergency (ER) | payer OTHER ==
[~2019-04-10] VITALS: Ht 165.1 cm; Wt 69.3 kg
[2019-04-10 14:39] VITALS: BP 124/69
== END 2019-04-10 14:41 | disposition home or self-care (01) ==
LOC: ED 12:10
DX: R51 Headache (principal); R20.2 Paresthesia of skin; R11.0 Nausea
CPT/HCPCS: 36415; 70450; 80048; 83735; 85025; 93005; 96374; 96375; 99284; J1885; J2765; Q0163

== ENCOUNTER 2019-09-11 02:14 | Inpatient (IN) | payer OTHER ==
[~2019-09-11] VITALS: Ht 165.1 cm; Wt 70.5 kg
[~2019-09-11 02:14] MED LIST changes: -ACET-1757 PO; +ACET-2065 PO; +CITA20TA6 PO; +DIPH-419 PO; -HYDR-3307 PO; +HYDR-36 PO; +IMIP25TA3 PO; +OXYC5TAB3 PO; +SENN-177 PO
--- NOTE | 2019-09-11 02:45 | NUR ---
THIS IS A 54Y F THAT COMES IN FOR R SIDE ABD PAIN RADIATING TO BACK. PT STS PAIN BEGAN 2 DAYS AGO AND IS WORSENING. PT STS SHE HAS HAD FEVER AND CHILLS BUT HAS NOT TAKEN HER TEMP AT HOME. PT DENIES RECENT ABD TRAUMA.
--- NOTE | 2019-09-11 02:46 | NUR ---
PA AT BEDSIDE TO ASSESS PT
[2019-09-11] MEDS ORDERED: KETOROLAC 30 MG/1 ML ONE (02:54)
[2019-09-11] MEDS ORDERED: ONDANSETRON 2MG/ML, 2ML ONE ×2 (02:54→06:09)
[2019-09-11] MEDS ORDERED: ONDANSETRON 2MG/ML, 2ML IVPush ONE ×2 (03:00→06:30)
[2019-09-11] MEDS ORDERED: SODIUM CHLORIDE FLUSH 10ML SYR IVF ONE (03:00)
[2019-09-11] MEDS ORDERED: KETOROLAC 30 MG/1 ML IVPush ONE (03:00)
--- NOTE | 2019-09-11 03:06 | NUR ---
PT TO US AT THIS TIME
[2019-09-11 03:34] LABS: BASOPHILS # (AUTO) 0.02 x10^3/uL (0-0.1); BASOPHILS % (AUTO) 1 % (0-1); EOSINOPHILS # (AUTO) 0.18 x10^3/uL (0-0.4); EOSINOPHILS % (AUTO) 4 % (1-7); LYMPHOCYTES # (AUTO) 0.59 x10^3/uL (1-3.4); LYMPHOCYTES % (AUTO) 13 % (22-44); MD NO; MEAN CORPUSCULAR HEMOGLOBIN 33.8 pg (27.0-34.8); MEAN CORPUSCULAR HGB CONC 33.8 g/dL (32.4-35.8); MEAN CORPUSCULAR VOLUME 99.8 fL (80-100); MEAN PLATELET VOLUME 8.5 fL (7.4-10.4); MONOCYTES % (AUTO) 9 % (2-9); NEUTROPHILS # (AUTO) 3.24 x10^3/uL (1.8-6.8); NEUTROPHILS % (AUTO) 73 % (42-75); PLATELET COUNT 226 x10^3/uL (130-400); RED BLOOD COUNT 3.63 x10^6/uL (3.82-5.3); RED CELL DISTRIBUTION WIDTH 13.4 % (9.6-15.2)
[2019-09-11 03:41] LABS: ALANINE AMINOTRANSFERASE 23 U/L (12-78); ALBUMIN 3.7 g/dL (3.4-5.0); ANION GAP 9 mmol/L (5-15); CALCIUM 8.3 mg/dL (8.5-10.1); CHLORIDE 110 mmol/L (98-107)
[2019-09-11 03:44] LABS: ALKALINE PHOSPHATASE 103 U/L (45-117); BILIRUBIN,TOTAL 0.5 mg/dL (0.2-1.0); CREATININE 0.81 mg/dL (0.55-1.02); TOTAL PROTEIN 6.9 g/dL (6.4-8.2)
--- NOTE | 2019-09-11 03:46 | NUR ---
PT BACK FROM US
[2019-09-11 03:47] LABS: MICROSCOPIC AUTO
[2019-09-11 03:48] LABS: CULTURE INDICATED? YES
[2019-09-11] MEDS ORDERED: OXYcodone/APAP 5/325MG TABLET ONE (04:16)
--- NOTE | 2019-09-11 04:19 | NUR ---
PT MEDICATED PER OCT, PT TO XRAY AT THIS TIME
--- NOTE | 2019-09-11 04:21 | NUR ---
PT BACK FROM XRAY
[2019-09-11 04:24] LABS: TROPONIN I < 0.015 ng/mL (0.000-0.045)
[2019-09-11] MEDS ORDERED: OXYcodone/APAP 5/325MG TABLET PO ONE (04:30)
[2019-09-11] MEDS ORDERED: MAALOX/HYOSCYAMINE/LIDOCAINE 45 ML BTL ONE (05:56)
--- NOTE | 2019-09-11 05:58 | NUR ---
AT BEDSIDE TO REASSESS PT AND DISCUSS POC
[2019-09-11] MEDS ORDERED: MAALOX/HYOSCYAMINE/LIDOCAINE 45 ML BTL PO ONE (06:00)
--- NOTE | 2019-09-11 06:03 | NUR ---
PT MEDICATED PER MAR
[2019-09-11] MEDS ORDERED: MORPHINE SULFATE 4 MG/ML, 1ML ONE ×2 (06:09→07:41)
--- NOTE | 2019-09-11 06:10 | NUR ---
GI TASHA NO HELP, UPDATED. ADDITIONAL ORDERS RECIEVED.
[2019-09-11] MEDS: MORPHINE SULFATE 4 MG/ML, 1ML IVPush PRN ×2 (06:12→07:43)
--- NOTE | 2019-09-11 06:12 | NUR ---
PT MEDICATED PER MAR FOR PAIN AND NAUSEA.
--- NOTE | 2019-09-11 06:14 | NUR ---
PT PAIN NOT IMPROVED AND CONTINUES TO WORSEN. PT STS NAUSEA MEDICATION NO HELP WELL. ERP UPDATED ON PT CONDITION PT IS WRITHING IN PAIN AND DRY HEAVING.
--- NOTE | 2019-09-11 06:17 | NUR ---
ADDITIONAL ORDER RECIEVED, PT MEDICATED PER OCT, ERP AT BEDSIDE TO REASSESS PT.
[2019-09-11] MEDS ORDERED: PROMETHAZINE 25 MG/ML, 1ML ONE (06:23)
--- NOTE | 2019-09-11 06:38 | NUR ---
PT TO CT AGAIN.
[2019-09-11] MEDS ORDERED: OMNIPAQUE 350 MG/ML, 100ML BOTTLE ONE (06:46)
[2019-09-11] MEDS ORDERED: HYDROmorphone 1 MG/ML, 1ML INJ IV ONE (07:00)
--- NOTE | 2019-09-11 07:04 | NUR ---
RECEIVED REPORT FROM FADY HURTADO RN. PT RESTING ON LUCIANA. VSS. STATES PAIN 12/02.
[2019-09-11] MEDS ORDERED: CEFTRIAXONE PMX 1GM/50ML 50 ML IV ONE (07:30)
[2019-09-11] MEDS ORDERED: CEFTRIAXONE PMX 1GM/50ML 50 ML ONE (07:41)
[2019-09-11] MEDS ORDERED: NIFEDIPINE PO (07:50)
--- NOTE | 2019-09-11 07:50 | NUR ---
PT RESTING ON [facility]. S. PT MEDICATED PER OCT.
[2019-09-11] MEDS ORDERED: ACETAMINOPHEN 325 MG TABLET PO PRN (08:30)
[2019-09-11] MEDS ORDERED: ONDANSETRON 2MG/ML, 2ML IVPush PRN (08:30)
[2019-09-11] MEDS ORDERED: hydrALAzine 20 MG/ML, 1ML IVPush PRN (08:30)
[2019-09-11] MEDS ORDERED: LIDODERM 5% PATCH TD PRN (08:30)
[2019-09-11] MEDS ORDERED: METHOCARBAMOL 500 MG TABLET PO PRN (08:30)
[2019-09-11] MEDS ORDERED: ONDANSETRON ODT 4 MG PO PRN (08:30)
[2019-09-11] MEDS ORDERED: IBUPROFEN 600 MG TABLET PO PRN (08:30)
[2019-09-11] MEDS ORDERED: FAMOTIDINE 20 MG/2 ML IVPush SCH (09:00)
[2019-09-11] MEDS ORDERED: GABAPENTIN 400 MG CAPSULE PO SCH (09:00)
--- NOTE | 2019-09-11 09:14 | NUR ---
PT RESTING ON LUCIANA. VSS. AWARE OF POC FOR ADMIT.
[2019-09-11] MEDS ORDERED: FAMOTIDINE 20 MG/2 ML ONE (10:25)
[2019-09-11] MEDS ORDERED: GABAPENTIN 300 MG CAPSULE ONE (10:25)
--- NOTE | 2019-09-11 10:41 | NUR ---
PT UP TO RESTROOM AND BACK TO BED W/ STEADY GAIT. PT PROVIDED W/ BREAKFAST RAY. RESTING ON GURNEY. NADN. VELASQUEZS.
--- NOTE | 2019-09-11 11:24 | NUR ---
PT RESTING ON GURNEY. NADN. VELOZ.
[2019-09-11] MEDS: D5%-0.45NACL+KCL 20MEQ 1,000 ML IV SCH ×2 (12:14→15:50)
[2019-09-11] MEDS ORDERED: HYDROmorphone 1 MG/ML, 1ML INJ ONE (12:29)
--- NOTE | 2019-09-11 12:32 | NUR ---
PT RESTING ON LUCIANA. RENETTA. VSS. LUNCH TRAY PROVIDED FOR PT. MEDICATED PER OCT.
--- NOTE | 2019-09-11 12:42 | NUR ---
HOSPITAL BED ORDERED FOR PT.
--- NOTE | 2019-09-11 13:25 | NUR ---
ATTEMPT TO CALL REPORT X 3.
--- NOTE | 2019-09-11 13:33 | NUR ---
Break RN note: Report called to Rylee CORADO on medical, floor ready for pt transport.
[2019-09-11 15:00] VITALS: BP 111/72
[2019-09-11 15:40] LABS: RAPID INFLUENZA A Negative (Negative); RAPID INFLUENZA B Negative (Negative)
[2019-09-11 20:02] VITALS: BP 119/53
[2019-09-11] MEDS: GABAPENTIN 300 MG CAPSULE PO SCH (20:17)
[2019-09-11] MEDS: CITALOPRAM 20 MG TABLET PO SCH (20:17)
[2019-09-11] MEDS: FAMOTIDINE 20 MG TABLET PO SCH (20:17)
[2019-09-11] MEDS: DIPHENHYDRAMINE 25 MG CAPSULE PO SCH (20:17)
[2019-09-11] MEDS: morphine SULFATE 10 MG/ML, 1ML IVPush PRN (22:24)
[2019-09-12 01:21] VITALS: BP 121/67
[2019-09-12] MEDS: morphine SULFATE 10 MG/ML, 1ML IVPush PRN ×5 (02:04→22:09)
[2019-09-12] MEDS: D5%-0.45NACL+KCL 20MEQ 1,000 ML IV SCH ×3 (02:52→23:40)
[2019-09-12 06:17] LABS: ALANINE AMINOTRANSFERASE 321 U/L (12-78); ALBUMIN 3.3 g/dL (3.4-5.0); ANION GAP 6 mmol/L (5-15); CALCIUM 7.8 mg/dL (8.5-10.1); CHLORIDE 108 mmol/L (98-107); CREATININE 0.69 mg/dL (0.55-1.02); MEAN CORPUSCULAR HEMOGLOBIN 33.8 pg (27.0-34.8); MEAN CORPUSCULAR HGB CONC 33.1 g/dL (32.4-35.8); MEAN CORPUSCULAR VOLUME 101.9 fL (80-100); MEAN PLATELET VOLUME 8.5 fL (7.4-10.4); PLATELET COUNT 170 x10^3/uL (130-400); RED BLOOD COUNT 3.37 x10^6/uL (3.82-5.3); RED CELL DISTRIBUTION WIDTH 13.2 % (9.6-15.2)
[2019-09-12 06:19] LABS: ALKALINE PHOSPHATASE 220 U/L (45-117); BILIRUBIN,TOTAL 0.5 mg/dL (0.2-1.0); TOTAL PROTEIN 6.5 g/dL (6.4-8.2)
[2019-09-12 06:40] LABS: MD YES
[2019-09-12 06:43] LABS: <PLATELET ESTIMATE> ADEQUATE; <PLT MORPHOLOGY> NORMAL PLT MORPH; ANISOCYTOSIS 1+; BAND#(MANUAL) 0.03 x10^3/uL; BANDS%(MANUAL) 1 % (0-7); EOS#(MANUAL) 0.19 x10^3/uL (0.0-0.4); EOS% (MANUAL) 6 % (1-7); LYMPH#(MANUAL) 1.21 x10^3/uL (1-3.4); LYMPHS% (MANUAL) 39 % (22-44); MONOS#(MANUAL) 0.34 x10^3/uL (0.3-2.7); MONOS% (MANUAL) 11 % (2-9); REACTIVE LYMPHS # (MANUAL) 0.03 x10^3/uL (0-0); REACTIVE LYMPHS % (MANUAL) 1 % (0-0); SEGS% (MANUAL) 42 % (42-75)
[2019-09-12 07:36] VITALS: BP 98/64
[2019-09-12] MEDS: GABAPENTIN 300 MG CAPSULE PO SCH ×2 (07:41→21:00)
[2019-09-12] MEDS: FAMOTIDINE 20 MG TABLET PO SCH ×2 (07:42→21:00)
[2019-09-12 13:18] VITALS: BP 94/54
[2019-09-12] MEDS: KETOROLAC 30 MG/1 ML IV PRN ×2 (13:38→21:00)
[2019-09-12 20:00] VITALS: BP 100/60
[2019-09-12] MEDS: DIPHENHYDRAMINE 25 MG CAPSULE PO SCH (21:00)
[2019-09-12] MEDS: CITALOPRAM 20 MG TABLET PO SCH (21:01)
[2019-09-12 22:14] VITALS: BP 100/60
[2019-09-13 02:00] VITALS: BP 121/68
[2019-09-13 06:25] LABS: ALBUMIN 3.1 g/dL (3.4-5.0); ANION GAP 4 mmol/L (5-15); CALCIUM 8.4 mg/dL (8.5-10.1); CHLORIDE 112 mmol/L (98-107)
[2019-09-13 06:26] LABS: MEAN CORPUSCULAR HEMOGLOBIN 34.1 pg (27.0-34.8); MEAN CORPUSCULAR HGB CONC 33.8 g/dL (32.4-35.8); MEAN CORPUSCULAR VOLUME 100.8 fL (80-100); MEAN PLATELET VOLUME 8.4 fL (7.4-10.4); PLATELET COUNT 152 x10^3/uL (130-400); RED BLOOD COUNT 3.28 x10^6/uL (3.82-5.3); RED CELL DISTRIBUTION WIDTH 13.5 % (9.6-15.2)
[2019-09-13 06:29] LABS: ALANINE AMINOTRANSFERASE 199 U/L (12-78); ALKALINE PHOSPHATASE 174 U/L (45-117); BILIRUBIN,TOTAL 0.5 mg/dL (0.2-1.0); CREATININE 0.57 mg/dL (0.55-1.02); TOTAL PROTEIN 6.3 g/dL (6.4-8.2)
[2019-09-13 06:44] LABS: MD YES
[2019-09-13 06:47] LABS: <PLATELET ESTIMATE> ADEQUATE; <PLT MORPHOLOGY> NORMAL PLT MORPH; ANISOCYTOSIS 1+; EOS#(MANUAL) 0.14 x10^3/uL (0.0-0.4); EOS% (MANUAL) 5 % (1-7); LYMPH#(MANUAL) 1.38 x10^3/uL (1-3.4); LYMPHS% (MANUAL) 51 % (22-44); MONOS#(MANUAL) 0.22 x10^3/uL (0.3-2.7); MONOS% (MANUAL) 8 % (2-9); SEG#(MANUAL) 0.97 x10^3/uL (1.8-6.8); SEGS% (MANUAL) 36 % (42-75)
[2019-09-13] MEDS: KETOROLAC 30 MG/1 ML IV PRN ×2 (07:29→13:22)
[2019-09-13] MEDS: GABAPENTIN 300 MG CAPSULE PO SCH ×2 (09:00→21:00)
[2019-09-13] MEDS: FAMOTIDINE 20 MG TABLET PO SCH ×2 (09:00→22:04)
[2019-09-13 11:05] VITALS: BP 109/59
[2019-09-13] MEDS: D5%-0.45NACL+KCL 20MEQ 1,000 ML IV SCH (11:08)
[2019-09-13] MEDS: morphine SULFATE 10 MG/ML, 1ML IVPush PRN ×4 (11:08→22:02)
[2019-09-13 13:33] VITALS: BP 124/82
[2019-09-13 14:16] LABS: INTERNATIONAL NORMALIZED RATIO 0.93 (0.93-1.1); PROTHROMBIN TIME 9.8 Seconds (9.6-11.5)
[2019-09-13 16:30] LABS: MICROSCOPIC NOT IND
[2019-09-13 19:43] VITALS: BP 123/62
[2019-09-13] MEDS ORDERED: GABAPENTIN 400 MG CAPSULE ONE (21:51)
[2019-09-13] MEDS ORDERED: GABAPENTIN 100 MG CAPSULE ONE (21:52)
[2019-09-13] MEDS: DIPHENHYDRAMINE 25 MG CAPSULE PO SCH (22:04)
[2019-09-13] MEDS: CITALOPRAM 20 MG TABLET PO SCH (22:04)
[2019-09-14] MEDS: KETOROLAC 30 MG/1 ML IV PRN ×2 (00:04→06:02)
[2019-09-14] MEDS: D5%-0.45NACL+KCL 20MEQ 1,000 ML IV SCH ×2 (00:55→10:30)
[2019-09-14 02:45] VITALS: BP 122/74
[2019-09-14 05:40] LABS: MEAN CORPUSCULAR HEMOGLOBIN 34.1 pg (27.0-34.8); MEAN CORPUSCULAR HGB CONC 33.7 g/dL (32.4-35.8); MEAN CORPUSCULAR VOLUME 101.3 fL (80-100); MEAN PLATELET VOLUME 8.2 fL (7.4-10.4); PLATELET COUNT 155 x10^3/uL (130-400); RED BLOOD COUNT 3.27 x10^6/uL (3.82-5.3); RED CELL DISTRIBUTION WIDTH 13.2 % (9.6-15.2)
[2019-09-14 05:48] LABS: ALBUMIN 3.2 g/dL (3.4-5.0); ANION GAP 5 mmol/L (5-15); CALCIUM 8.5 mg/dL (8.5-10.1); CHLORIDE 113 mmol/L (98-107)
[2019-09-14 05:52] LABS: ALANINE AMINOTRANSFERASE 149 U/L (12-78); ALKALINE PHOSPHATASE 168 U/L (45-117); BILIRUBIN,TOTAL 0.6 mg/dL (0.2-1.0); CREATININE 0.51 mg/dL (0.55-1.02); TOTAL PROTEIN 6.4 g/dL (6.4-8.2)
[2019-09-14 06:08] LABS: MD YES
[2019-09-14 06:11] LABS: <PLATELET ESTIMATE> ADEQUATE; <PLT MORPHOLOGY> NORMAL PLT MORPH; EOS#(MANUAL) 0.13 x10^3/uL (0.0-0.4); EOS% (MANUAL) 5 % (1-7); LYMPH#(MANUAL) 1.18 x10^3/uL (1-3.4); LYMPHS% (MANUAL) 47 % (22-44); MONOS#(MANUAL) 0.23 x10^3/uL (0.3-2.7); MONOS% (MANUAL) 9 % (2-9); REACTIVE LYMPHS # (MANUAL) 0.13 x10^3/uL (0-0); REACTIVE LYMPHS % (MANUAL) 5 % (0-0); SEG#(MANUAL) 0.85 x10^3/uL (1.8-6.8); SEGS% (MANUAL) 34 % (42-75)
[2019-09-14 06:12] LABS: <RBC MORPHOLOGY> NORMAL
[2019-09-14] MEDS ORDERED: LIDOCAINE 1%, 10ML INFIL ONE (07:00)
[2019-09-14] MEDS ORDERED: DEXAMETHASONE 4 MG/ML, 1ML IVPush ONE (07:00)
[2019-09-14 07:01] VITALS: BP 122/77
[2019-09-14] MEDS: URSODIOL 300 MG CAPSULE PO SCH ×2 (09:09)
[2019-09-14] MEDS: FAMOTIDINE 20 MG TABLET PO SCH (09:09)
[2019-09-14] MEDS: GABAPENTIN 300 MG CAPSULE PO SCH (09:09)
[2019-09-14] MEDS: morphine SULFATE 10 MG/ML, 1ML IVPush PRN (09:37)
[2019-09-14] MEDS ORDERED: URSO300C12 PO (11:04)
[2019-09-14] MEDS ORDERED: METH500T7 PO (11:04)
== END 2019-09-14 12:30 | disposition home or self-care (01) | DRG 552 ==
LOC: ED 03:13 → SUATTDRO 08:02 → EDIP 08:20 → OBSVTOIN 08:20 → 3N 14:00 → DCLOUNGE 09-14 12:15
PROVIDERS: ADMIT Hospitalist; ATTEND Internal Medicine
PROC: 3E0233Z Introduction of Anti-inflammatory into Muscle, Percutaneous Approach (ICD-10-PCS; principal; 2019-09-14)
PROC: 3E023BZ Introduction of Anesthetic Agent into Muscle, Percutaneous Approach (ICD-10-PCS; 2019-09-14)
DX: M54.5 Low back pain (principal); R10.11 Right upper quadrant pain; E04.2 Nontoxic multinodular goiter; F17.210 Nicotine dependence, cigarettes, uncomplicated; G62.9 Polyneuropathy, unspecified; G89.29 Other chronic pain; Z80.0 Family history of malignant neoplasm of digestive organs; Z80.7 Family history of other malignant neoplasms of lymphoid, hematopoietic and related tissues; Z85.3 Personal history of malignant neoplasm of breast; Z90.49 Acquired absence of other specified parts of digestive tract; Z90.710 Acquired absence of both cervix and uterus; Z98.1 Arthrodesis status
CPT/HCPCS: 36415; 84145; 87400; 96374; 96375; 99285; J3490; 71046; 71275; 74174; 74176; 74181; 76700; 78226; 80053; 81001; 81003; 83605; 83690; 84484; 85025; 85610; 86704; 86706; 86708; 86803; 87040; 87086; 87340; 93005; J0696; J1100; J1170; J1885; J2405; Q9967; A9537; G0378; J2270; J3480; Q0163

== ENCOUNTER → 2019-09-15 | Outpatient (CLI) | payer OTHER ==
[~2019-09-15] MED LIST changes: +METH500T7 PO; +NIFEDIPINE PO; +URSO300C12 PO
== END | disposition home or self-care (01) ==
LOC: CFH 08:17
PROVIDERS: ATTEND Radiology Radiation Oncology
DX: Z12.31 Encounter for screening mammogram for malignant neoplasm of breast (principal)
CPT/HCPCS: 77063; 77067

== ENCOUNTER 2020-01-21 07:19 | Day surgery (SDC) | payer OTHER ==
[2020-01-18 11:22] LABS: MICROSCOPIC NOT IND
[~2020-01-21] VITALS: Ht 165.1 cm; Wt 69.1 kg
[~2020-01-21 07:19] MED LIST changes: +EREN70AU2 IM; +HYDR-3246 PO; -HYDR-36 PO; +IBUP-1840 PO; +NORT25CA78 PO; +URSO500T9 PO
[2020-01-21 07:36] VITALS: BP 109/75
[2020-01-21] MEDS ORDERED: LACTATED RINGERS 1,000 ML IV SCH (07:36)
[2020-01-21] MEDS ORDERED: CHLORHEXIDINE 15 ML UDC MM ONE (08:00)
[2020-01-21] MEDS ORDERED: FENTANYL PF 250 MCG/5ML ONE (08:31)
[2020-01-21] MEDS ORDERED: MIDAZOLAM 1 MG/ML, 2ML ONE (08:31)
[2020-01-21] MEDS ORDERED: DEXAMETHASONE 4 MG/ML, 1ML ONE (08:37)
[2020-01-21] MEDS ORDERED: ONDANSETRON 2MG/ML, 2ML ONE (08:37)
[2020-01-21] MEDS ORDERED: PHENYLEPHRINE 10 MG/ML ONE (08:44)
[2020-01-21] MEDS ORDERED: ROCURONIUM 10MG/ML,5ML ONE (08:44)
[2020-01-21] MEDS ORDERED: SUCCINYLCHOLINE 20 MG/ML, 10ML ONE (08:44)
[2020-01-21] MEDS ORDERED: PROPOFOL 10 MG/ML, 20ML ONE (08:44)
[2020-01-21] MEDS ORDERED: ACETAMINOPHEN 325 MG TABLET PO PRN (09:00)
[2020-01-21] MEDS ORDERED: hydrALAzine 20 MG/ML, 1ML IV PRN (09:00)
[2020-01-21] MEDS ORDERED: LABETALOL 5MG/ML, 20ML IV PRN (09:00)
[2020-01-21] MEDS ORDERED: ONDANSETRON 2MG/ML, 2ML IVPush PRN (09:00)
[2020-01-21] MEDS ORDERED: MEPERIDINE/PF 25MG/0.5ML IVPush PRN (09:00)
[2020-01-21] MEDS ORDERED: PROMETHAZINE 25 MG/ML, 1ML IVPush PRN (09:00)
[2020-01-21] MEDS ORDERED: OXYcodone 5 MG/5 ML ORAL.SOL UDC PO PRN (09:00)
[2020-01-21] MEDS ORDERED: HYDROmorphone 1 MG/ML, 1ML INJ IVPush PRN (09:00)
[2020-01-21] MEDS ORDERED: EPHEDRINE 50 MG/ML, 1ML ONE (09:05)
[2020-01-21] MEDS ORDERED: OMNIPAQUE 350 MG/ML, 50 ML BOTTLE ONE (10:00)
[2020-01-21] MEDS ORDERED: FENTANYL PF 100 MCG/2ML ONE (10:19)
[2020-01-21] MEDS ORDERED: LORazepam 2 MG/ML, 1ML ONE (10:20)
[2020-01-21] MEDS: FENTANYL PF 100 MCG/2ML IV PRN ×3 (10:20→10:30)
[2020-01-21] MEDS ORDERED: MAALOX/HYOSCYAMINE/LIDOCAINE 45 ML BTL PO ONE (10:30)
[2020-01-21] MEDS ORDERED: LORazepam 2 MG/ML, 1ML IVPush PRN (10:30)
[2020-01-21] MEDS ORDERED: INDOMETHACIN 50 MG SUPP.RECT ONE (10:45)
[2020-01-21] MEDS ORDERED: INDOMETHACIN 50 MG SUPP.RECT PR ONE (11:00)
== END 2020-01-21 12:35 | disposition home or self-care (01) ==
LOC: OUT 07:19
PROVIDERS: ATTEND Internal Medicine Gastroenterology
DX: R93.3 Abnormal findings on diagnostic imaging of other parts of digestive tract (principal); Z11.59 Encounter for screening for other viral diseases; K86.89 Other specified diseases of pancreas; K82.8 Other specified diseases of gallbladder; K29.50 Unspecified chronic gastritis without bleeding; Z79.899 Other long term (current) drug therapy; Z85.3 Personal history of malignant neoplasm of breast; Z90.49 Acquired absence of other specified parts of digestive tract
CPT/HCPCS: 43239; 43259; 43264; 74328; 81003; 88305; C1769; J0330; J1100; J2250; J2370; J2405; J2704; J3010; J7120; Q9967; U0001

== ENCOUNTER 2020-06-28 13:01 | Emergency (ER) | payer OTHER ==
[~2020-06-28] VITALS: Ht 165.1 cm; Wt 69.4 kg
--- NOTE | 2020-06-28 13:30 | NUR ---
Odin linton in [facility] - 06/28/20 at 1605 by RHEA Report given to MICKIE Harley
[2020-06-28 13:48] LABS: BASOPHILS % (AUTO) 1 % (0-1); EOSINOPHILS % (AUTO) 2 % (1-7); LYMPHOCYTES % (AUTO) 16 % (22-44); MEAN CORPUSCULAR HEMOGLOBIN 33.6 pg (27.0-34.8); MEAN CORPUSCULAR HGB CONC 33.4 g/dL (32.4-35.8); MEAN PLATELET VOLUME 7.8 fL (7.4-10.4); MONOCYTES % (AUTO) 6 % (2-9); NEUTROPHILS % (AUTO) 75 % (42-75); PLATELET COUNT 337 x10^3/uL (130-400); RED BLOOD COUNT 3.84 x10^6/uL (3.82-5.3); RED CELL DISTRIBUTION WIDTH 13.2 % (9.6-15.2)
[2020-06-28 13:51] LABS: MD NO
[2020-06-28 13:55] LABS: ALANINE AMINOTRANSFERASE 16 U/L (12-78); ALBUMIN 3.9 g/dL (3.4-5.0); ANION GAP 6 mmol/L (5-15); CALCIUM 9.1 mg/dL (8.5-10.1); CHLORIDE 109 mmol/L (98-107)
[2020-06-28 13:59] LABS: ALKALINE PHOSPHATASE 150 U/L (45-117); BILIRUBIN,TOTAL 0.4 mg/dL (0.2-1.0); TOTAL PROTEIN 7.7 g/dL (6.4-8.2); TROPONIN I < 0.015 ng/mL (0.000-0.045)
--- NOTE | 2020-06-28 14:10 | NUR ---
PT CAME IN CO OF NAUSEA, ABD PAIN, COUGHING, DIZZINESS, AND "I ALMOST FAINTED TODAY AT ABOUT 1200 SO I CAME HERE". PT STATES SHE HAS HX OF GALLSTONES. PT IS RESTING IN RNEY. EKG COMPLETE. PT CONNECTED TO ALL MONITORING EQUIPMENT. MD IS BEDSIDE FOR ASSESSMENT
--- NOTE | 2020-06-28 15:33 | NUR ---
PT RESTING IN BED, WATCHING TV. PT REQUESTING PAIN AND NAUSEA RELIEF.
[2020-06-28 15:53] LABS: MICROSCOPIC INDICATED
[2020-06-28] MEDS ORDERED: KETOROLAC 30 MG/1 ML IM ONE (16:00)
[2020-06-28] MEDS ORDERED: PROMETHAZINE 25 MG/ML, 1ML IM ONE (16:00)
[2020-06-28] MEDS ORDERED: PROMETHAZINE 25 MG/ML, 1ML ONE (16:04)
[2020-06-28] MEDS ORDERED: KETOROLAC 30 MG/1 ML ONE (16:04)
--- NOTE | 2020-06-28 16:19 | NUR ---
PT MEDICATED PER MAR
[2020-06-28 16:52] VITALS: BP 114/59
--- NOTE | 2020-06-28 17:18 | NUR ---
PT REC'VD DISCHARGE INSTRUCTION AND EDUCATION. PT HAD NO FURTHER QUESTIONS. PT AMBULATED TO DC AREA, STEADY GAIT.
== END 2020-06-28 17:36 | disposition home or self-care (01) ==
LOC: ED 17:05
DX: R42 Dizziness and giddiness (principal); R10.31 Right lower quadrant pain; R55 Syncope and collapse; R11.2 Nausea with vomiting, unspecified; R10.11 Right upper quadrant pain; R94.31 Abnormal electrocardiogram [ECG] [EKG]; I10 Essential (primary) hypertension; Z85.3 Personal history of malignant neoplasm of breast; Z90.710 Acquired absence of both cervix and uterus; Z87.891 Personal history of nicotine dependence; Z90.49 Acquired absence of other specified parts of digestive tract
CPT/HCPCS: 36415; 71045; 80053; 81001; 83880; 84484; 85025; 87635; 93005; 96372; 99285; J1885; J2550

== ENCOUNTER 2020-09-20 09:11 | Outpatient (CLI) | payer OTHER ==
[~2020-09-20 09:11] MED LIST changes: -HYDR-3246 PO; +HYDR-3248 PO; +METH-639 PO; -METH500T7 PO; -OXYC-302 PO; +OXYC1TAB14 PO; -OXYC5TAB3 PO; +OXYC5TAB98 PO
== END 2020-09-20 23:59 | disposition home or self-care (01) ==
LOC: CFH 09:11
PROVIDERS: ATTEND Family Medicine
DX: Z02.9 Encounter for administrative examinations, unspecified (principal)

== ENCOUNTER → 2020-10-23 | Outpatient (CLI) | payer MEDICAID, OTHER | END | disposition home or self-care (01) | LOC: CFH 13:41 | PROVIDERS: ATTEND Radiology Radiation Oncology | DX: C50.412 Malignant neoplasm of upper-outer quadrant of left female breast (principal) | CPT/HCPCS: 76642; 77062; 77066; G0279 ==

== ENCOUNTER 2020-11-24 13:51 | Observation (INO) | payer MEDICAID ==
[~2020-11-24] VITALS: Ht 165.1 cm; Wt 71.3 kg
--- NOTE | 2020-11-24 14:08 | NUR ---
PT AMBULATORY TO ROOM AND TO BR TO PROVIDE URINE SPECIMEN. CALL LIGHT WITHIN REACH.
--- NOTE | 2020-11-24 14:29 | NUR ---
SMALL AMOUNT OF YELLOW URINE COLLECTED/UA ORDERED/SENT TO LAB. PT REQUESTING PAIN MEDICINE FOR 03/03 RUQ/FLANK PAIN. CALL LIGHT WITHIN REACH. FAMILY AT BS.
[2020-11-24 14:37] LABS: MICROSCOPIC NOT IND
--- NOTE | 2020-11-24 15:06 | NUR ---
IV PLACED, LABS DRAWN WITH START. REPORT TO MARIA CORADO, TRANSFER OF CARE.
--- NOTE | 2020-11-24 15:15 | NUR ---
PT IN BED WITH NO SIGNS OR SYMPTOMS OF ACUTE DISTRESS NOTED RESPIRATIONS EVEN AND UNLABORED, DAUGHTER AT BEDSIDE. CALL LIGHT WITHIN REACH. Addendum: 11/24/20 at 1536 by CINDI CORRECTION- AT BEDSIDE
[2020-11-24] MEDS ORDERED: ONDANSETRON 2MG/ML, 2ML ONE (15:23)
[2020-11-24] MEDS ORDERED: MORPHINE SULFATE 4 MG/ML, 1ML ONE ×2 (15:24→15:54)
[2020-11-24] MEDS: MORPHINE SULFATE 4 MG/ML, 1ML IVPush PRN ×2 (15:30→15:56)
[2020-11-24] MEDS ORDERED: SODIUM CHLORIDE FLUSH 10ML SYR IVF ONE (15:30)
[2020-11-24] MEDS ORDERED: ONDANSETRON 2MG/ML, 2ML IVPush ONE (15:30)
[2020-11-24] MEDS ORDERED: SODIUM CHLORIDE 0.9% 1,000ML IVBOLUS ONE (15:30)
[2020-11-24 15:40] LABS: BASOPHILS % (AUTO) 1 % (0-1); EOSINOPHILS % (AUTO) 5 % (1-7); LYMPHOCYTES % (AUTO) 23 % (22-44); MEAN CORPUSCULAR HEMOGLOBIN 34.4 pg (27.0-34.8); MEAN CORPUSCULAR HGB CONC 34.3 g/dL (32.4-35.8); MEAN PLATELET VOLUME 8.8 fL (7.4-10.4); MONOCYTES % (AUTO) 7 % (2-9); NEUTROPHILS % (AUTO) 64 % (42-75); PLATELET COUNT 256 x10^3/uL (130-400); RED BLOOD COUNT 3.74 x10^6/uL (3.82-5.3); RED CELL DISTRIBUTION WIDTH 12.7 % (9.6-15.2)
[2020-11-24 15:47] LABS: MD NO
[2020-11-24 15:50] LABS: ALANINE AMINOTRANSFERASE 21 U/L (12-78); ALBUMIN 4.2 g/dL (3.4-5.0); ANION GAP 7 mmol/L (5-15); CALCIUM 8.8 mg/dL (8.5-10.1); CHLORIDE 110 mmol/L (98-107); CREATININE 0.63 mg/dL (0.55-1.02)
[2020-11-24 15:53] LABS: ALKALINE PHOSPHATASE 121 U/L (45-117); BILIRUBIN,TOTAL 0.3 mg/dL (0.2-1.0); TOTAL PROTEIN 7.8 g/dL (6.4-8.2)
[2020-11-24] MEDS ORDERED: HYDROmorphone 1 MG/ML, 1ML INJ ONE ×2 (16:51→18:38)
--- NOTE | 2020-11-24 16:53 | NUR ---
PATIENT NOT IN ROOM FOR CT WILL CHECK IN 15 MIN
--- NOTE | 2020-11-24 16:59 | NUR ---
PT TO CT
[2020-11-24] MEDS ORDERED: HYDROmorphone 1 MG/ML, 1ML INJ IV ONE ×2 (17:00→17:30)
--- NOTE | 2020-11-24 18:46 | NUR ---
PT IN BED WITH NO SIGNS OR SYMPTOMS OF ACUTE DISTRESS NOTED RESPIRATIONS EVEN AND UNLABORED, MEDICATED ORDERED WITH DILAUDID 1 MG IV FOR PAIN RATED 7/10 IN ABD. PT STATES PAIN IS WORSE WITH MOVEMENT. PT AWARE AND AGREEABLE WITH PLAN OF CARE, CALL LIGHT WITHIN REACH LIGHTS LOW IN ROOM FOR COMFORT
--- NOTE | 2020-11-24 19:31 | NUR ---
HOSPITALIST AT BEDSIDE TO ASSESS.
--- NOTE | 2020-11-24 19:56 | NUR ---
PT UP TO AMBULATE TO BATHROOM, WALKED WITH AT TOUCH ASSIST, PT UNABLE TO PRODUCE STOOL SAMPLE AT THIS TIME. PT RETURNED SAFELY TO BED, WITH BEDSIDE COMMODE READY AT BEDSIDE. PT VERBALIZES UNDERSTANDING AND AGREEMENT WITH PLAN OF CARE, PENDING STOOL AND ROOM FOR ADMISSION. PT IN BED WITH NO SIGNS OR SYMPTOMS OF ACUTE DISTRESS NOTED RESPIRATIONS EVEN AND UNLABORED, CALL LIGHT WITHIN REACH.
[2020-11-24] MEDS ORDERED: morphine SULFATE 10 MG/ML, 1ML IVPush PRN (20:30)
[2020-11-24] MEDS ORDERED: METHOCARBAMOL 500 MG TABLET PO SCH (20:30)
[2020-11-24] MEDS ORDERED: ONDANSETRON 2MG/ML, 2ML IVPush PRN (20:30)
[2020-11-24] MEDS ORDERED: CITALOPRAM 20 MG TABLET PO SCH (21:00)
[2020-11-24] MEDS ORDERED: NORTRIPTYLINE 25 MG CAPSULE PO SCH (21:00)
[2020-11-24 21:17] VITALS: BP 125/79
[2020-11-24] MEDS ORDERED: METHOCARBAMOL 750 MG TABLET PO PRN (22:00)
[2020-11-24] MEDS: NS + 20MEQ KCL 1,000 ML IV SCH (23:13)
[2020-11-24] MEDS: URSODIOL 250 MG TABLET PO SCH (23:16)
[2020-11-25] MEDS ORDERED: HYDROmorphone 1 MG/ML, 1ML INJ IV PRN
[2020-11-25 00:04] VITALS: BP 128/78
[2020-11-25 05:36] LABS: ANION GAP 7 mmol/L (5-15); CALCIUM 8.3 mg/dL (8.5-10.1); CHLORIDE 111 mmol/L (98-107)
[2020-11-25 05:37] LABS: CREATININE 0.62 mg/dL (0.55-1.02)
[2020-11-25 05:45] LABS: BASOPHILS % (AUTO) 0 % (0-1); EOSINOPHILS % (AUTO) 6 % (1-7); LYMPHOCYTES % (AUTO) 21 % (22-44); MEAN CORPUSCULAR HEMOGLOBIN 34.4 pg (27.0-34.8); MEAN CORPUSCULAR HGB CONC 34.1 g/dL (32.4-35.8); MEAN PLATELET VOLUME 8.3 fL (7.4-10.4); MONOCYTES % (AUTO) 9 % (2-9); NEUTROPHILS % (AUTO) 64 % (42-75); PLATELET COUNT 206 x10^3/uL (130-400); RED BLOOD COUNT 3.25 x10^6/uL (3.82-5.3); RED CELL DISTRIBUTION WIDTH 12.6 % (9.6-15.2)
[2020-11-25 05:46] LABS: MD NO
[2020-11-25] MEDS ORDERED: POTASSIUM CHLORIDE 40 MEQ in SODIUM CHLORIDE 0.9% 500 ML IV ONE (06:30)
[2020-11-25] MEDS ORDERED: POTASSIUM CHLORIDE 20 MEQ TAB.ER.PRT PO ONE (06:30)
[2020-11-25 07:28] VITALS: BP 118/85
[2020-11-25] MEDS: URSODIOL 250 MG TABLET PO SCH (08:26)
[2020-11-25] MEDS ORDERED: GABAPENTIN 400 MG CAPSULE PO SCH (09:00)
[2020-11-25] MEDS: KETOROLAC 30 MG/1 ML IVPush SCH ×2 (10:09→16:09)
[2020-11-25] MEDS: NS + 20MEQ KCL 1,000 ML IV SCH (10:09)
[2020-11-25 10:45] LABS: CLOSTRIDIUM DIFFICILE ANTIGEN NEGATIVE; CLOSTRIDIUM DIFFICILE TOXIN NEGATIVE (Negative)
[2020-11-25 10:54] LABS: CRYPTOSPORIDIUM ANTIGEN Negative (Negative)
[2020-11-25 13:25] VITALS: BP 99/50
[2020-11-25] MEDS ORDERED: DICY20TA4 PO (15:41)
== END 2020-11-25 18:19 | disposition home or self-care (01) ==
LOC: ED 18:40 → INTOOBSV 20:32 → EDIP 20:32 → 3N 21:00 → UNDODISIN 11-25 18:19
PROVIDERS: ADMIT Internal Medicine; ATTEND Family Medicine
DX: R19.7 Diarrhea, unspecified (principal); E87.6 Hypokalemia; M54.9 Dorsalgia, unspecified; G89.4 Chronic pain syndrome; I10 Essential (primary) hypertension; G62.9 Polyneuropathy, unspecified; D75.89 Other specified diseases of blood and blood-forming organs; Z85.3 Personal history of malignant neoplasm of breast; Z87.891 Personal history of nicotine dependence; Z90.710 Acquired absence of both cervix and uterus; Z98.1 Arthrodesis status
CPT/HCPCS: 36415; 71045; 74176; 76700; 80048; 80053; 81003; 82607; 83605; 83690; 83735; 85025; 87040; 87046; 87324; 87328; 87329; 87427; 89055; 96361; 96365; 96366; 96375; 96376; 99285; G0378; J1170; J1885; J2270; J2405; J3480; J7030; J7040; 96374

== ENCOUNTER 2021-05-18 15:08 | Emergency (ER) | payer MEDICAID ==
[~2021-05-18] VITALS: Ht 165.1 cm; Wt 70.0 kg
[~2021-05-18 15:08] MED LIST changes: +DICY20TA4 PO; +OXYC1TAB12 PO; -OXYC1TAB14 PO
[2021-05-18] MEDS ORDERED: KETOROLAC 30 MG/1 ML ONE (16:50)
[2021-05-18] MEDS ORDERED: ONDANSETRON 2MG/ML, 2ML ONE (16:51)
[2021-05-18] MEDS ORDERED: HYDROmorphone 2 MG/ML, 1ML ONE ×3 (16:51→21:08)
[2021-05-18] MEDS ORDERED: SODIUM CHLORIDE 0.9% 1,000ML IV ONE (17:00)
[2021-05-18] MEDS ORDERED: HYDROmorphone 1 MG/ML, 1ML INJ IV ONE ×2 (17:00→18:00)
[2021-05-18] MEDS ORDERED: ONDANSETRON 2MG/ML, 2ML IVPush ONE (17:00)
[2021-05-18] MEDS ORDERED: SODIUM CHLORIDE FLUSH 10ML SYR IVF ONE (17:00)
[2021-05-18] MEDS ORDERED: KETOROLAC 30 MG/1 ML IVPush ONE (17:00)
--- NOTE | 2021-05-18 17:09 | NUR ---
patient to br at this time.
--- NOTE | 2021-05-18 17:10 | NUR ---
CT taking patient to ct after BR
[2021-05-18 17:19] LABS: BASOPHILS % (AUTO) 1 % (0-1); EOSINOPHILS % (AUTO) 5 % (1-7); LYMPHOCYTES % (AUTO) 33 % (22-44); MEAN CORPUSCULAR HEMOGLOBIN 34.5 pg (27.0-34.8); MEAN CORPUSCULAR HGB CONC 34.3 g/dL (32.4-35.8); MEAN PLATELET VOLUME 8.4 fL (7.4-10.4); MONOCYTES % (AUTO) 12 % (2-9); NEUTROPHILS % (AUTO) 50 % (42-75); PLATELET COUNT 178 x10^3/uL (130-400); RED BLOOD COUNT 3.39 x10^6/uL (3.82-5.3); RED CELL DISTRIBUTION WIDTH 12.3 % (9.6-15.2)
[2021-05-18 17:27] LABS: ALANINE AMINOTRANSFERASE 45 U/L (12-78); ALBUMIN 3.6 g/dL (3.4-5.0); ANION GAP 7 mmol/L (5-15); CALCIUM 8.6 mg/dL (8.5-10.1); CHLORIDE 107 mmol/L (98-107); CREATININE 0.57 mg/dL (0.55-1.02)
[2021-05-18 17:29] LABS: ALKALINE PHOSPHATASE 133 U/L (45-117); BILIRUBIN,TOTAL 0.2 mg/dL (0.2-1.0); TOTAL PROTEIN 7.6 g/dL (6.4-8.2)
[2021-05-18 17:41] LABS: MICROSCOPIC NOT IND
--- NOTE | 2021-05-18 18:28 | NUR ---
ASSUMING CARE OF PT AFTER REPORT FROM AJITH CORADO.
--- NOTE | 2021-05-18 18:45 | NUR ---
REPORT TO ASHA
--- NOTE | 2021-05-18 18:52 | NUR ---
report recieved from estee de la cruz. pt resting in [facility]
[2021-05-18] MEDS ORDERED: HYDROmorphone 2 MG/ML, 1ML IVPush PRN (21:00)
--- NOTE | 2021-05-18 21:14 | NUR ---
pt medicted per emar for pain, placed on 2 l profalactically. pt to ct at this time
[2021-05-18] MEDS ORDERED: OMNIPAQUE 350 MG/ML, 75ML BOTTLE ONE (21:26)
[2021-05-18 21:47] VITALS: BP 115/53
== END 2021-05-18 22:48 | disposition home or self-care (01) ==
LOC: ED 15:13
DX: M54.6 Pain in thoracic spine (principal); M54.5 Low back pain; I10 Essential (primary) hypertension; Z90.49 Acquired absence of other specified parts of digestive tract; Z90.710 Acquired absence of both cervix and uterus; Z87.891 Personal history of nicotine dependence; Z85.3 Personal history of malignant neoplasm of breast
CPT/HCPCS: 36415; 71275; 74176; 80053; 81003; 83605; 83690; 85025; 87040; 96361; 96374; 96375; 96376; 99285; J1170; J1885; J2405; J7030; Q9967